=== PATIENT | male | born 1990 | race Two or more races ===

== ENCOUNTER 2017-02-25 18:35 | Emergency (ER) | payer BC ==
[~2017-02-25 18:35] MED LIST: AUGMENTIN875 MG/TA1 PO; NORCO 5/325 TAB1 TAB PO
[2017-02-25] MEDS ORDERED: KEFLEX500 M4 PO (19:27)
== END 2017-02-25 19:45 ==
LOC: EDMED 18:35
PROC: 0H9FXZZ Drainage of Right Hand Skin, External Approach (ICD-10-PCS; principal; 2017-02-25)
DX: L03.011 Cellulitis of right finger (principal)